=== PATIENT | female | born 1950 | race Caucasian/White ===

== ENCOUNTER 2016-03-11 09:21 | Emergency (ER) | payer BC, MEDICARE ==
[2016-03-11 09:29] VITALS: RESP 20
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
[2016-03-11 11:29] VITALS: BP 97/50; PULSE 87; TEMP 97
[2016-03-11 11:40] LABS: Appearance,Urine Turbid (Clear); Bilirubin,Urine Negative (Negative); Glucose,Urine (UA) Negative (Negative); Ketones,Urine Negative (Negative); Leukocyte Esterase,Urine Moderate (Negative); Mucus,Urine Many /hpf; Nitrite,Urine Negative (Negative); Particle Count 92470; Protein,Urine 2+ (Negative); RBC,Urine >182 /hpf (0-5); Squamous Epithelial Cell,Urine 35 /hpf (0-4); UA Billing (MACRO vs. MICRO) MICRO; Urobilinogen,Urine <2.0 mg/dL (<2.0); WBC,Urine 64 /hpf (0-5)
== END 2016-03-11 11:31 | disposition home or self-care (01) ==
LOC: EC 09:21
DX: Z76.89 Persons encountering health services in other specified circumstances (principal); G82.20 Paraplegia, unspecified; Z93.3 Colostomy status; Z91.041 Radiographic dye allergy status; Z86.14 Personal history of Methicillin resistant Staphylococcus aureus infection; Z79.899 Other long term (current) drug therapy
CPT/HCPCS: 51702; 81001; 87077; 87086; 87186; 99283

== ENCOUNTER → 2016-04-13 | Outpatient (CLI) | payer BC, MEDICARE ==
[2016-04-13 09:44] VITALS: BP 177/92; PULSE 67; RESP 20; TEMP 97.5
== END | disposition home or self-care (01) ==
LOC: PROCWHC3 09:07
PROVIDERS: ATTEND Internal Medicine Infectious Disease
DX: R33.8 Other retention of urine (principal); G04.1 Tropical spastic paraplegia
CPT/HCPCS: 99213

== ENCOUNTER → 2016-04-28 | Outpatient (CLI) | payer BC, MEDICARE | END | disposition home or self-care (01) | LOC: PROCWHC3 10:31 | PROVIDERS: ATTEND Internal Medicine Infectious Disease | DX: R33.8 Other retention of urine (principal); G04.1 Tropical spastic paraplegia | CPT/HCPCS: 99213 ==

== ENCOUNTER → 2016-06-15 | Outpatient (CLI) | payer BC, MEDICARE | LOC: PROCWHC3 09:43 | PROVIDERS: ATTEND Internal Medicine Infectious Disease | DX: R33.8 Other retention of urine (principal) | CPT/HCPCS: 99213 ==

== ENCOUNTER → 2016-07-06 | Outpatient (CLI) | payer BC, MEDICARE | LOC: PROCWHC3 11:10 | PROVIDERS: ATTEND Internal Medicine Infectious Disease | DX: N31.9 Neuromuscular dysfunction of bladder, unspecified (principal) | CPT/HCPCS: 99213 ==

== ENCOUNTER 2017-04-19 09:54 | Emergency (ER) | payer BC, MEDICARE ==
[2017-04-19 10:04] VITALS: RESP 16
[2017-04-19] MEDS ORDERED: SODIUM CHLORIDE 0.9% 500 ML IV ONE (10:23)
[2017-04-19] MEDS ORDERED: SODIUM CHLORIDE 0.9% 1,000 ML IV ONE (10:23)
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
[2017-04-19 10:52] LABS: Basophils % (A) 0 %; Eosinophils # (A) 0.6 k/uL (0-0.7); Eosinophils % (A) 6 %; HCT 43.8 % (34.0-46.0); HGB 14.2 gm/dL (11.4-16.0); Lymphocytes # (A) 2.4 k/uL (1.0-4.8); Lymphocytes % (A) 21 %; MCHC 32.3 g/dL (31.0-37.0); MCV 83.5 fL (80.0-100.0); Mean Platelet Volume 7.1; Monocytes # (A) 0.5 k/uL (0-1.0); Monocytes % (A) 4 %; Neutrophils # (A) 7.9 k/uL (1.3-7.7); Neutrophils % (A) 68 %; Platelet Count 351 k/uL (150-450); RBC 5.25 m/uL (3.80-5.40); RDW 14.7 % (11.5-15.5); WBC 11.6 k/uL (3.8-10.6)
[2017-04-19 11:39] LABS: Amorphous Sediment,Urine Rare /hpf; Appearance,Urine Cloudy (Clear); Bacteria,Urine Few /hpf; Bilirubin,Urine Negative (Negative); Blood,Urine Small (Negative); Color,Urine Colorless; Glucose,Urine (UA) Negative (Negative); Ketones,Urine Negative (Negative); Leukocyte Esterase,Urine Large (Negative); Nitrite,Urine Negative (Negative); Protein,Urine Negative (Negative); RBC,Urine 1 /hpf (0-5); Specific Gravity,Urine 1.002 (1.001-1.035); Squamous Epithelial Cell,Urine <1 /hpf (0-4); Urobilinogen,Urine <2.0 mg/dL (<2.0); WBC,Urine 24 /hpf (0-5)
[2017-04-19] MEDS ORDERED: cefTRIAXone IN SWFI 1,000 MG/10 ML SYRINGE IVP STA (12:02)
[2017-04-19 12:10] LABS: Anion Gap 13 mmol/L; Blood Urea Nitrogen 16 mg/dL (7-17); Calcium 9.3 mg/dL (8.4-10.2); Carbon Dioxide 22 mmol/L (22-30); Chloride 108 mmol/L (98-107); Glucose 112 mg/dL (74-99); Potassium 3.9 mmol/L (3.5-5.1); Sodium 143 mmol/L (137-145)
[2017-04-19 12:21] VITALS: BP 109/59
[2017-04-19 12:39] VITALS: PULSE 78; TEMP 97.7
== END 2017-04-19 13:32 | disposition home or self-care (01) ==
LOC: EC 09:54
DX: N39.0 Urinary tract infection, site not specified (principal); G82.20 Paraplegia, unspecified; Z86.14 Personal history of Methicillin resistant Staphylococcus aureus infection; Z98.890 Other specified postprocedural states; Z79.899 Other long term (current) drug therapy; Z88.1 Allergy status to other antibiotic agents; Z88.2 Allergy status to sulfonamides; Z91.041 Radiographic dye allergy status
CPT/HCPCS: 36415; 80048; 85025; 81001; 87040; 87086; 99283; 51702; 96374; 96361 ×2; J0696; 87077; 87186

== ENCOUNTER → 2017-09-01 | Outpatient (CLI) | payer BC, MEDICARE ==
[2017-09-01 15:39] LABS: T4, Free (Free Thyroxine) 1.25 ng/dL (0.78-2.19)
== END ==
LOC: LABWHC1 14:27
PROVIDERS: ATTEND Family Medicine
DX: E03.9 Hypothyroidism, unspecified (principal)
CPT/HCPCS: 36415; 84439; 84443

== ENCOUNTER 2017-12-03 11:59 | Emergency (ER) | payer BC, MEDICARE ==
[2017-12-03 12:11] VITALS: RESP 18
[2017-12-03] MEDS ORDERED: SODIUM CHLORIDE 0.9% 1,000 ML IV ONE (13:07)
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
[2017-12-03 14:03] LABS: Basophils % (A) 0 %; Eosinophils # (A) 0.4 k/uL (0-0.7); Eosinophils % (A) 4 %; HCT 47.8 % (34.0-46.0); HGB 15.3 gm/dL (11.4-16.0); Lymphocytes # (A) 2.6 k/uL (1.0-4.8); Lymphocytes % (A) 25 %; MCH 27.7 pg (25.0-35.0); MCHC 32.1 g/dL (31.0-37.0); MCV 86.3 fL (80.0-100.0); Mean Platelet Volume 6.8; Monocytes # (A) 0.4 k/uL (0-1.0); Monocytes % (A) 4 %; Neutrophils # (A) 6.7 k/uL (1.3-7.7); Neutrophils % (A) 66 %; Platelet Count 357 k/uL (150-450); RBC 5.54 m/uL (3.80-5.40); WBC 10.3 k/uL (3.8-10.6)
--- NOTE | 2017-12-03 14:17 | XR ---
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 Sacrum is not well seen, qu estion underlying erosion, bone mineralization is reduced. IMPRESSION: There may be chronic osteomyelitis of the sacrum as noted on prior CT. Osteopenia limits the exam.
[2017-12-03 14:28] LABS: ALT 13 U/L (9-52); AST 31 U/L (14-36); Albumin 4.1 g/dL (3.5-5.0); Alkaline Phosphatase 111 U/L (38-126); Anion Gap 11 mmol/L; Blood Urea Nitrogen 19 mg/dL (7-17); Calcium 9.5 mg/dL (8.4-10.2); Carbon Dioxide 23 mmol/L (22-30); Chloride 109 mmol/L (98-107); Glucose 102 mg/dL (74-99); Potassium 4.9 mmol/L (3.5-5.1); Sodium 143 mmol/L (137-145); Total Bilirubin 0.6 mg/dL (0.2-1.3); Total Protein 8.1 g/dL (6.3-8.2)
[2017-12-03 16:29] VITALS: BP 159/75; PULSE 75; TEMP 97.1
== END 2017-12-03 16:29 | disposition home or self-care (01) ==
LOC: EC 11:59
DX: L89.329 Pressure ulcer of left buttock, unspecified stage (principal); L89.899 Pressure ulcer of other site, unspecified stage; G82.20 Paraplegia, unspecified; M86.9 Osteomyelitis, unspecified; Z79.899 Other long term (current) drug therapy; Z88.2 Allergy status to sulfonamides; Z91.041 Radiographic dye allergy status; Z91.048 Other nonmedicinal substance allergy status
CPT/HCPCS: 36415; 72170; 80053; 85025; 87040; 87070; 87077; 87186; 87205; 96360; 99284

== ENCOUNTER → 2018-02-05 | Outpatient (CLI) | payer BC, MEDICARE ==
[2018-02-05 12:28] LABS: HCT 50.8 % (34.0-46.0); MCH 27.7 pg (25.0-35.0); MCHC 31.5 g/dL (31.0-37.0); Mean Platelet Volume 6.3; Platelet Count 325 k/uL (150-450); RBC 5.78 m/uL (3.80-5.40); RDW 13.3 % (11.5-15.5); WBC 11.3 k/uL (3.8-10.6)
[2018-02-05 17:41] LABS: Albumin 4.6 g/dL (3.80-4.90); Albumin/Globulin Ratio 1.44 (1.20-2.10); Anion Gap 11.7 mmol/L (4.00-12.00); Calcium 9.5 mg/dL (8.7-10.3); Carbon Dioxide 22.3 mmol/L (21.6-31.8); Globulin 3.2 g/dL (2.1-3.7); Potassium 4.5 mmol/L (3.5-5.5); Total Bilirubin 0.4 mg/dL (0.3-1.2); Total Protein 7.8 g/dL (6.2-8.2)
== END | disposition home or self-care (01) ==
LOC: LABWHC1 11:42
PROVIDERS: ATTEND Thoracic Surgery (Cardiothoracic Vascular Surgery)
DX: E63.8 Other specified nutritional deficiencies (principal)
CPT/HCPCS: 36415; 80053; 84134; 85027

== ENCOUNTER → 2018-02-16 | Outpatient (CLI) | payer BC, MEDICARE | LOC: LABWHC1 14:22 | PROVIDERS: ATTEND Nurse Practitioner | DX: E05.90 Thyrotoxicosis, unspecified without thyrotoxic crisis or storm (principal) | CPT/HCPCS: 36415; 84443 ==

== ENCOUNTER 2019-03-01 12:55 | Emergency (ER) | payer MEDICARE ==
[2019-03-01] MEDS ORDERED: SODIUM CHLORIDE 0.9% 500 ML 500 ML IV STA (13:36)
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
--- NOTE | 2019-03-01 14:59 | XR ---
EXAMINATION TYPE: XR KUB DATE OF EXAM: 03/01/2019 CLINICAL DATA: 68-year-old female with a diarrhea and pain, [facility] COMPARISON: 10/27/2012 FINDINGS: Very large patient body habitus results in underpenetration limiting assessment. No dilated small bowel. Scattered air seen particularly within the right side of the colon and also w ithin the stomach. Advanced degenerative change in both hips. There also appears to be an ostomy in t he right lower quadrant. Mild stool in the right-sided the abdomen. Supine imaging is limited for assessment of free air. IMPRESSION: Nonobstructive bowel gas pattern. Mild stool within the right side of the abdomen. There are also marga ears to be a right lower quadrant colostomy.
[2019-03-01 15:17] LABS: Basophils # (A) 0.1 k/uL (0-0.2); Basophils % (A) 1 %; Eosinophils # (A) 0.7 k/uL (0-0.7); Eosinophils % (A) 9 %; HCT 48.3 % (34.0-46.0); Lymphocytes # (A) 2.1 k/uL (1.0-4.8); Lymphocytes % (A) 28 %; MCH 27.4 pg (25.0-35.0); MCHC 31.1 g/dL (31.0-37.0); Mean Platelet Volume 7.8; Monocytes # (A) 0.3 k/uL (0-1.0); Monocytes % (A) 4 %; Neutrophils # (A) 4.3 k/uL (1.3-7.7); Neutrophils % (A) 57 %; Platelet Count 291 k/uL (150-450); RBC 5.49 m/uL (3.80-5.40); RDW 12.9 % (11.5-15.5); WBC 7.6 k/uL (3.8-10.6)
[2019-03-01 15:21] VITALS: RESP 18
[2019-03-01 15:31] LABS: ALT 12 U/L (4-34); AST 38 U/L (14-36); African American GFR (CKD) >90 (>60 ml/min/1.73 sqM); Albumin 4.2 g/dL (3.5-5.0); Alkaline Phosphatase 135 U/L (38-126); Anion Gap 11 mmol/L; Blood Urea Nitrogen 7 mg/dL (7-17); Calcium 9.3 mg/dL (8.4-10.2); Carbon Dioxide 23 mmol/L (22-30); Chloride 109 mmol/L (98-107); Glucose 92 mg/dL (74-99); Magnesium 1.9 mg/dL (1.6-2.3); Non-African American GFR(CKD) >90 (>60 ml/min/1.73 sqM); Potassium 4.4 mmol/L (3.5-5.1); Sodium 143 mmol/L (137-145); Total Bilirubin 0.9 mg/dL (0.2-1.3); Total Protein 7.9 g/dL (6.3-8.2)
[2019-03-01 16:54] VITALS: BP 150/88; PULSE 70; TEMP 97.1
== END 2019-03-01 17:30 | disposition home or self-care (01) ==
LOC: EC 12:55
DX: K52.9 Noninfective gastroenteritis and colitis, unspecified (principal); G82.50 Quadriplegia, unspecified; E07.9 Disorder of thyroid, unspecified; Z79.890 Hormone replacement therapy; Z79.899 Other long term (current) drug therapy; Z88.1 Allergy status to other antibiotic agents; Z88.2 Allergy status to sulfonamides; Z91.041 Radiographic dye allergy status; Z93.3 Colostomy status
CPT/HCPCS: 36415; 74018; 80053; 82272; 83630; 83690; 83735; 83993; 85025; 87045; 87046; 87324; 87338; 96360; 99283

== ENCOUNTER → 2020-09-17 | Outpatient (CLI) | payer MEDICARE ==
[2020-09-17 17:02] LABS: Basophils # (A) 0.04 X 10*3/uL (0.00-0.10); Basophils % (A) 0.5 %; Eosinophils # (A) 0.37 X 10*3/uL (0.04-0.35); Eosinophils % (A) 4.4 %; HCT 47.7 % (37.2-46.3); HGB 15.3 g/dL (12.0-15.0); Lymphocytes # (A) 2.66 X 10*3/uL (0.90-5.00); Lymphocytes % (A) 31.8 %; MCH 28.7 pg (27.0-32.0); MCHC 32.1 g/dL (32.0-37.0); MCV 89.3 fL (80.0-97.0); Mean Platelet Volume 9.8 fL (9.5-12.2); Monocytes # (A) 0.53 X 10*3/uL (0.20-1.00); Monocytes % (A) 6.3 %; Neutrophils # (A) 4.74 X 10*3/uL (1.80-7.70); Neutrophils % (A) 56.6 %; Platelet Count 346 X 10*3/uL (140-440); RBC 5.34 X 10*6/uL (4.10-5.20); RDW 13.2 % (11.5-14.5); WBC 8.37 X 10*3/uL (4.50-10.00)
[2020-09-17 19:08] LABS: Hemoglobin A1C 5.2 % (4.0-6.0)
[2020-09-17 20:41] LABS: Albumin 4.2 g/dL (3.80-4.90); Albumin/Globulin Ratio 1.27 (1.60-3.17); Anion Gap 11.8 mmol/L (4.00-12.00); Calcium 8.9 mg/dL (8.7-10.3); Carbon Dioxide 22.2 mmol/L (21.6-31.8); Chol/HDL Ratio 4.51; Globulin 3.3 g/dL (1.6-3.3); LDL Cholesterol,Calculated 160.8 mg/dL (0.0-131.0); Magnesium 1.7 mg/dL (1.5-2.4); Total Bilirubin 0.5 mg/dL (0.2-1.2); Total Protein 7.5 g/dL (6.2-8.2); VLDL Calculation 18.2 mg/dL (5.00-40.00)
== END | disposition home or self-care (01) ==
LOC: LABWHC1 10:17
PROVIDERS: ATTEND Family Medicine
DX: G82.20 Paraplegia, unspecified (principal); E05.90 Thyrotoxicosis, unspecified without thyrotoxic crisis or storm; E03.9 Hypothyroidism, unspecified; N39.0 Urinary tract infection, site not specified
CPT/HCPCS: 36415; 80053; 80061; 82306; 83036; 83735; 84443; 85025

== ENCOUNTER → 2021-08-02 | Outpatient (CLI) | payer MEDICARE ==
[2021-08-02 23:32] LABS: ALT 14 U/L (8-44); AST 29 U/L (13-35); African American GFR (CKD) 110.3 (60.0-200.0); Albumin 4.2 g/dL (3.8-4.9); Albumin/Globulin Ratio 1.24 (1.60-3.17); Alkaline Phosphatase 105 U/L (41-126); BUN/Creat Ratio 23.39 Ratio (12.00-20.00); Blood Urea Nitrogen 13.1 mg/dL (9.0-27.0); Calcium 9.5 mg/dL (8.7-10.3); Carbon Dioxide 22.8 mmol/L (20.0-27.5); Chloride 105 mmol/L (96-109); Chol/HDL Ratio 4.34 Ratio; Globulin 3.4 g/dL (1.6-3.3); Glucose 92 mg/dL (70-110); LDL Cholesterol,Calculated 165.2 mg/dL (0.0-131.0); Non-African American GFR(CKD) 95.1 (60.0-200.0); Potassium 4.3 mmol/L (3.5-5.5); Sodium 141 mmol/L (135-145); Total Protein 7.7 g/dL (6.2-8.2)
== END | disposition home or self-care (01) ==
LOC: LABWHC1 10:04
PROVIDERS: ATTEND Family Medicine
DX: Z00.00 Encounter for general adult medical examination without abnormal findings (principal); E03.9 Hypothyroidism, unspecified; G82.20 Paraplegia, unspecified; E05.90 Thyrotoxicosis, unspecified without thyrotoxic crisis or storm; E55.9 Vitamin D deficiency, unspecified
CPT/HCPCS: 36415; 80053; 80061; 82306; 83036; 84443

== ENCOUNTER → 2022-09-11 | Outpatient (CLI) | payer MEDICARE ==
[2022-09-11 20:55] LABS: ALT 16 U/L (8-44); AST 29 U/L (13-35); Albumin 4.5 d/dL (3.8-4.9); Albumin/Globulin Ratio 1.25 Ratio (1.60-3.17); Alkaline Phosphatase 98 U/L (41-126); BUN/Creat Ratio 19.83 Ratio (12.00-20.00); Blood Urea Nitrogen 11.9 mg/dL (9.0-27.0); Calcium 9.9 mg/dL (8.7-10.3); Carbon Dioxide 23.5 mmol/L (21.6-31.8); Chloride 104 mmol/L (96-109); Chol/HDL Ratio 3.99 Ratio; Globulin 3.6 d/dL (1.6-3.3); Glucose 100 mg/dL (70-110); LDL Cholesterol,Calculated 146.7 mg/dL (0.0-131.0); Potassium 4.2 mmol/L (3.5-5.5); Sodium 142 mmol/L (135-145); Total Bilirubin 0.4 mg/dL (0.3-1.2); Total Protein 8.1 d/dL (6.2-8.2)
== END | disposition home or self-care (01) ==
LOC: LABWHC1 11:59
PROVIDERS: ATTEND Family Medicine
DX: Z00.00 Encounter for general adult medical examination without abnormal findings (principal); E05.90 Thyrotoxicosis, unspecified without thyrotoxic crisis or storm; E03.9 Hypothyroidism, unspecified; E55.9 Vitamin D deficiency, unspecified
CPT/HCPCS: 36415; 80053; 80061; 82306; 83036

== ENCOUNTER → 2022-09-30 | Outpatient (CLI) | payer MEDICARE | END | disposition home or self-care (01) | LOC: LABWHC1 11:08 | PROVIDERS: ATTEND Family Medicine | DX: E03.9 Hypothyroidism, unspecified (principal) | CPT/HCPCS: 36415; 84443 ==

== ENCOUNTER → 2024-05-23 | Outpatient (CLI) | payer MEDICARE ==
[2024-05-23 19:35] LABS: Basophils # (A) 0.06 X 10*3/uL (0.00-0.10); Basophils % (A) 0.6 %; Eosinophils # (A) 1.04 X 10*3/uL (0.04-0.35); Eosinophils % (A) 10.6 %; HCT 46.4 % (37.2-46.3); HGB 15.1 g/dL (12.0-15.0); Lymphocytes # (A) 3.35 X 10*3/uL (0.90-5.00); Lymphocytes % (A) 34.1 %; MCH 28.7 pg (27.0-32.0); MCHC 32.5 g/dL (32.0-37.0); Mean Platelet Volume 10.7 FL (9.5-12.2); Monocytes % (A) 5.1 %; NRBC Per 100 WBC 0 X 10*3/uL (0.00-0.01); Neutrophils # (A) 4.86 X 10*3/uL (1.80-7.70); Neutrophils % (A) 49.4 %; Platelet Count 334 X 10*3/uL (140-440); RBC 5.27 X 10*6/uL (4.10-5.20); RDW 13.5 % (11.5-14.5); WBC 9.83 X 10*3/uL (4.50-10.00)
[2024-05-23 21:26] LABS: ALT 10 U/L (8-44); AST 27 U/L (13-35); Albumin/Globulin Ratio 1.05 Ratio (1.60-3.17); Alkaline Phosphatase 105 U/L (41-126); Blood Urea Nitrogen 13.9 mg/dL (9.0-27.0); Calcium 9.5 mg/dL (8.7-10.3); Carbon Dioxide 21.7 mmol/L (21.6-31.8); Chloride 103 mmol/L (96-109); Chol/HDL Ratio 4.01 Ratio; Globulin 3.8 g/dL (1.6-3.3); Glucose 95 mg/dL (70-110); LDL Cholesterol,Calculated 144.9 mg/dL (0.0-131.0); Potassium 4.1 mmol/L (3.5-5.5); Sodium 139 mmol/L (135-145); Total Bilirubin 0.4 mg/dL (0.3-1.2); Total Protein 7.8 g/dL (6.2-8.2)
== END | disposition home or self-care (01) ==
LOC: LABWHC1 12:47
PROVIDERS: ATTEND Family Medicine
DX: G82.20 Paraplegia, unspecified (principal); E03.9 Hypothyroidism, unspecified; E05.90 Thyrotoxicosis, unspecified without thyrotoxic crisis or storm; E55.9 Vitamin D deficiency, unspecified
CPT/HCPCS: 36415; 80053; 80061; 82306; 83036; 84443; 85025

== ENCOUNTER → 2024-09-19 | Outpatient (CLI) | payer MEDICARE ==
[2024-09-19 19:30] LABS: ALT 9 U/L (8-44); AST 27 U/L (13-35); Albumin 3.8 g/dL (3.8-4.9); Albumin/Globulin Ratio 1.03 Ratio (1.60-3.17); Alkaline Phosphatase 98 U/L (41-126); Anion Gap 14.50 mmol/L (4.00-12.00); BUN/Creat Ratio 26.60 Ratio (12.00-20.00); Blood Urea Nitrogen 13.3 mg/dL (9.0-27.0); Calcium 9.0 mg/dL (8.7-10.3); Carbon Dioxide 20.5 mmol/L (21.6-31.8); Chloride 106 mmol/L (96-109); Globulin 3.7 g/dL (1.6-3.3); Glucose 113 mg/dL (70-110); Potassium 4.0 mmol/L (3.5-5.5); Sodium 141 mmol/L (135-145); Total Protein 7.5 g/dL (6.2-8.2)
[2024-09-19 19:32] LABS: Basophils # (A) 0.06 X 10*3/uL (0.00-0.10); Basophils % (A) 0.6 %; Eosinophils # (A) 0.60 X 10*3/uL (0.04-0.35); Eosinophils % (A) 5.6 %; HCT 46.6 % (37.2-46.3); HGB 15.1 g/dL (12.0-15.0); Immature Grans, Automated 0.40 %; Lymphocytes # (A) 3.54 X 10*3/uL (0.90-5.00); Lymphocytes % (A) 33.3 %; MCH 28.9 pg (27.0-32.0); MCHC 32.4 g/dL (32.0-37.0); MCV 89.1 FL (80.0-97.0); Monocytes # (A) 0.78 X 10*3/uL (0.20-1.00); Monocytes % (A) 7.3 %; NRBC Per 100 WBC 0 X 10*3/uL (0.00-0.01); Neutrophils # (A) 5.60 X 10*3/uL (1.80-7.70); Neutrophils % (A) 52.8 %; Platelet Count 322 X 10*3/uL (140-440); RBC 5.23 X 10*6/uL (4.10-5.20); RDW 12.9 % (11.5-14.5); WBC 10.62 X 10*3/uL (4.50-10.00)
== END | disposition home or self-care (01) ==
LOC: LABWHC1 11:53
PROVIDERS: ATTEND Internal Medicine Infectious Disease
DX: L89.159 Pressure ulcer of sacral region, unspecified stage (principal); G82.21 Paraplegia, complete
CPT/HCPCS: 36415; 80053; 85025; 86140

== ENCOUNTER → 2024-09-20 | Outpatient (CLI) | payer MEDICARE ==
--- NOTE | 2024-09-20 18:21 | MR ---
EXAMINATION TYPE: MR sacrum/coccyx wo/w con DATE OF EXAM: 09/20/2024 4:21 PM COMPARISON: CT 02/07/2016. CLINICAL INDICATION: Female, 74 years old with history of L89.159 PRESSURE ULCER OF SACRAL REGION; PH H, r/o osteomyelitis - pressure ulcer on sacral region TECHNIQUE: Triplane multisequence imaging was performed of the pelvis. IV Contrast: 8ml mL Gadobutrol FINDINGS: Reproductive: Vagina: Unremarkable. Uterus: The uterus is surgically absent Ovaries: Follicular changes are noted to the ovaries. Bladder: Unremarkable. Bowel: Unremarkable as visualized. Peritoneum: No free fluid or adenopathy. Lymph nodes: No evidence of adenopathy. Vasculature: Unremarkable. Musculoskeletal: Bone marrow signal is within normal signal intensity. Signal decubitus ulcer extendi ng towards the ischial tuberosity there is abnormal bone marrow signal on the ischial tuberosity on T 1-weighted imaging. Soft tissue wound extends to the ischial tuberosity. Postcontrast imaging demonst rates contrast enhancement along the track towards this area of wound. There is a small gas and fluid collection near the ischial tuberosity measuring 31 x 22 mm. Abdominal wall/soft tissues: Unremarkable. IMPRESSION: There is abnormal appearance of the initial tuberosity on the right with low T1 intrinsic signal sugg estive of acute on chronic osteomyelitis. Sacral decubitus ulcer extends to this region with small ga s and fluid collection measuring 31 x 22 mm near the ischial tuberosity. [facility], , 09/20/2024 6:19 PM
== END | disposition home or self-care (01) ==
LOC: RADMRIMAIN 14:06
PROVIDERS: ATTEND Internal Medicine Infectious Disease
DX: L89.159 Pressure ulcer of sacral region, unspecified stage (principal)
CPT/HCPCS: 72197; A9585